=== PATIENT | female | born 1965 | race Caucasian/White ===

== ENCOUNTER 2016-07-02 10:47 | Emergency (ER) | payer BC ==
[2016-07-02 12:40] VITALS: BP 150/74
[2016-07-02] MEDS ORDERED: Fluorescein Sodium TOPICAL* 1 MG TEST ONE (12:42)
--- NOTE | 2016-07-02 13:00 | UC ---
Eye Complaint HPI - HPI Summary HPI Summary: 5 days ago developed L eye irritation while carrying wood, saw PCP at [place] 4 days ago and was rx gentamycin eye drops. Started using them in R eye at that point because she felt sx starting then. Since then sx have only worsened with copious tearing and dripping, very crusted in the am. Very itchy, denies photophobia or FB sensation. - History of Current Complaint Chief Complaint: UCEye Stated Complaint: EYE ISSUE Time Seen by Provider: 07/02/16 12:47 Hx Obtained From: Patient ?: No Onset/Duration: Gradual Onset, Lasting Days Timing: Constant Severity Initially: Mild Severity Currently: Moderate Location of Injury: Conjunctiva Aggravating Factor(s): Nothing Alleviating Factor(s): Nothing Associated Signs And Symptoms: Positive: Drainage (Clear). Negative: Photophobia, Vision Impairment Bilateral - Allergies/Home Medications Allergies/Adverse Reactions: Allergies Allergy/AdvReac Type Severity Reaction Status Date / Time No Known Allergies Allergy Verified 07/02/16 12:31 PMH/Surg Hx/FS Hx/Imm Hx Previously Healthy: Yes - Surgical History Surgical History: None - Family History Known Family History: Positive: Other - denies glaucoma or eye problems - Social History Occupation: Employed Full-time Alcohol Use: Occasionally Substance Use Type: None Smoking Status (MU): Light Every Day Tobacco Smoker Amount Used/How Often: 1/2 PPD Review of Systems Constitutional: Negative Skin: Negative Eyes: Drainage, Eye Redness ENT: Negative Respiratory: Negative Cardiovascular: Negative Gastrointestinal: Negative Genitourinary: Negative Motor: Negative Neurovascular: Negative Musculoskeletal: Negative Neurological: Negative Psychological: Negative All Other Systems Reviewed And Are Negative: Yes Physical Exam Triage Information Reviewed: Yes Appearance: Well-Appearing, No Pain Distress, Well-Nourished Vital Signs: Initial Vital Signs Temp 98.9 F 07/02/16 12:35 Pulse 76 07/02/16 12:35 Resp 18 07/02/16 12:35 BP 150/74 07/02/16 12:35 Pulse Ox 100 07/02/16 12:35 Vital Signs Reviewed: Yes Eye Exam: Other - fluorescein dye negative for uptake Eyes: Positive: Conjunctiva Inflamed ENT Exam: Normal ENT: Positive: Normal ENT inspection, Hearing grossly normal, Pharynx normal, TMs normal Dental Exam: Normal Neck exam: Normal Neck: Positive: Supple, Nontender, No Lymphadenopathy Respiratory Exam: Normal Respiratory: Positive: Chest non-tender, Lungs clear, Normal breath sounds, No respiratory distress Cardiovascular Exam: Normal Cardiovascular: Positive: RRR, No Murmur Musculoskeletal Exam: Normal Neurological Exam: Normal Psychological Exam: Normal Skin Exam: Normal Eye Complaint Course/Dx - Differential Dx/Diagnosis Provider Diagnoses: bilat conjunctivitis, viral versus allergic Discharge - Discharge Plan Condition: Stable Disposition: HOME Prescriptions: Erythromycin OPTH OINT* 1 applic BOTH EYES QID #1 ophth.oint Patient Education Materials: Conjunctivitis (ED) Referrals: Brock Mckeon MD [Medical Doctor] - 3 Days Additional Instructions: As we discussed, I think you likely have either a viral conjunctivitis or an allergic reaction to the drops you put in your eyes. STOP USING THE GENTAMYCIN DROPS. If you have a viral infection, it will probably take several days to resolve. If you do not have rapid improvement, you should see an Mdm Developer later this week for a recheck.
== END 2016-07-02 13:00 | disposition home or self-care (01) ==
LOC: UCEAST 10:47
DX: H10.9 Unspecified conjunctivitis (principal); F17.210 Nicotine dependence, cigarettes, uncomplicated
CPT/HCPCS: 99202; A9270-GY; G0463

== ENCOUNTER 2017-04-05 15:55 | Observation (INO) | payer BC ==
[2017-04-05 19:43] LABS: Hematocrit 39 % (35-47); Hemoglobin 13.7 g/dl (12.0-16.0); Mean Corpuscular HGB Conc 35 g/dl (31-36); Mean Corpuscular Hemoglobin 32 pg (27-31); Mean Corpuscular Volume 92 fL (80-97); Mean Platelet Volume 8 um3 (7.4-10.4); Red Blood Count 4.25 10^6/ul (4.0-5.4); Red Cell Distribution Width 12 % (10.5-15); White Blood Count 10.1 10^3/ul (3.5-10.8)
--- NOTE | 2017-04-05 19:46 | ED ---
Throat Pain/Nasal Congestion - HPI Summary HPI Summary: 51F w/ no PMH presents with swelling and pain under tongue for a week. Developed tooth pain in tooth 17 and saw an oral surgeon in [place] who removed the tooth on saturday. She states the swelling has increased since then. She was placed on amoxicillin which has been taking since Saturday. She followed up with primary today who sent her for CT. CT shows left sided sialothiasis with loculate fluid collection in left submandibular gland measuring 3.2cm. no chest pain or SOB, no nausea or vomiting. no erythema of area. no drainage from karlene duct. <Daisy Haynes - Last Filed: 04/06/17 02:36> <Steph Davidson - Last Filed: 04/07/17 16:38> - History of Current Complaint Chief Complaint: EDDentalPain Time Seen by Provider: 04/05/17 18:30 - Allergies/Home Medications Allergies/Adverse Reactions: Allergies Allergy/AdvReac Type Severity Reaction Status Date / Time Sulfa Antibiotics Allergy Unknown Verified 04/05/17 18:13 Reaction Details Home Medications: Home Medications Multiple Vitamin [Multivitamins] 1 cap PO DAILY 04/05/17 [History Confirmed 12/15] PMH/Surg Hx/FS Hx/Imm Hx Endocrine/Hematology History: Denies: Hx Diabetes Cardiovascular History: Denies: Hx Hypertension History: Denies: Hx Renal Disease - Surgical History Surgery Procedure, Year, and Place: D&C Infectious Disease History: No Infectious Disease History: Denies: Traveled Outside the [place] in Last 30 Days - Family History Known Family History: Positive: Other - denies glaucoma or eye problems - Social History Alcohol Use: Occasionally Substance Use Type: Reports: None, Prescribed Smoking Status (MU): Light Every Day Tobacco Smoker Amount Used/How Often: 1/2 PPD <Daisy Haynes - Last Filed: 04/06/17 02:36> Review of Systems Negative: Fever Positive: Other - swelling left side of face. Negative: Chest Pain Negative: Shortness Of Breath All Other Systems Reviewed And Are Negative: Yes <Dasiy Haynes - Last Filed: 04/06/17 02:36> Physical Exam Triage Information Reviewed: Yes Vital Signs On Initial Exam: Initial Vitals Temp Pulse Resp BP Pulse Ox 98.7 F 76 17 164/102 98 04/05/17 16:06 04/05/17 16:06 04/05/17 16:06 04/05/17 16:06 04/05/17 16:06 Vital Signs Reviewed: Yes Completion Of Physical Exam Limited Due To: Dementia Appearance: Positive: Well-Appearing Skin: Positive: Warm, Dry Eyes: Positive: Normal, EOMI, NELSON, Conjunctiva Clear ENT: Positive: Pharynx normal, TMs normal, Other - swelling to left side neck with no erythema, no drainage expressed from karlene duct.. Negative: Trismus, Muffled/hoarse voice Respiratory/Lung Sounds: Positive: Clear to Auscultation, Breath Sounds Present Cardiovascular: Positive: Normal, RRR - Kristin Coma Scale Coma Scale Total: 15 <Daisy Haynes - Last Filed: 04/06/17 02:36> Vital Signs On Initial Exam: Initial Vitals Temp Pulse Resp BP Pulse Ox 98.7 F 76 17 164/102 98 04/05/17 16:06 04/05/17 16:06 04/05/17 16:06 04/05/17 16:06 04/05/17 16:06 <Steph Davidson - Last Filed: 04/07/17 16:38> Diagnostics - Vital Signs Vital Signs Temp Pulse Resp BP Pulse Ox 04/05/17 16:06 98.7 F 76 17 164/102 98 - Laboratory Result Diagrams: 04/05/17 19:30 04/05/17 19:30 Lab Statement: Any lab studies that have been ordered have been reviewed, and results considered in the medical decision making process. <Daisy Haynes - Last Filed: 04/06/17 02:36> - Vital Signs Vital Signs Temp Pulse Resp BP Pulse Ox 04/05/17 21:30 74 126/69 96 04/05/17 21:08 16 04/05/17 21:04 72 98 04/05/17 21:03 130/72 04/05/17 16:06 98.7 F 76 17 164/102 98 - Laboratory Lab Results: Lab Results 04/05/17 04/05/17 04/05/17 Range/Units 19:30 19:30 19:30 WBC 10.1 (3.5-10.8) 10^3/ul RBC 4.25 (4.0-5.4) 10^6/ul Hgb 13.7 (12.0-16.0) g/dl Hct 39 (35-47) % MCV 92 (80-97) fL MCH 32 H (27-31) pg MCHC 35 (31-36) g/dl RDW 12 (10.5-15) % Plt Count 321 (150-450) 10^3/ul MPV 8 (7.4-10.4) um3 Neut % (Auto) 66.0 (38-83) % Lymph % (Auto) 23.4 L (25-47) % [place] % (Auto) 7.9 (1-9) % Eos % (Auto) 1.7 (0-6) % Baso % (Auto) 1.0 (0-2) % Absolute Neuts (auto) 6.7 (1.5-7.7) 10^3/ul Absolute Lymphs (auto) 2.4 (1.0-4.8) 10^3/ul Absolute Monos (auto) 0.8 (0-0.8) 10^3/ul Absolute Eos (auto) 0.2 (0-0.6) 10^3/ul Absolute Basos (auto) 0.1 (0-0.2) 10^3/ul Absolute Nucleated RBC 0 10^3/ul Nucleated RBC % 0 Sodium 136 (133-145) mmol/L Potassium 3.9 (3.5-5.0) mmol/L Chloride 103 (101-111) mmol/L Carbon Dioxide 25 (22-32) mmol/L Anion Gap 8 (2-11) mmol/L BUN 7 (6-24) mg/dL Creatinine 0.53 (0.51-0.95) mg/dL Est GFR ( Amer) 155.2 (>60) Est GFR (Non-Af Amer) 120.7 (>60) BUN/Creatinine Ratio 13.2 (8-20) Glucose 98 (70-100) mg/dL Lactic Acid 0.5 (0.5-2.0) mmol/L Calcium 9.4 (8.6-10.3) mg/dL Total Bilirubin 0.50 (0.2-1.0) mg/dL AST 14 (13-39) U/L ALT 12 (7-52) U/L Alkaline Phosphatase 73 (34-104) U/L C-React Prot High Sens 44.22 mg/L Total Protein 7.1 (6.4-8.9) g/dL Albumin 4.2 (3.2-5.2) g/dL Globulin 2.9 (2-4) g/dL Albumin/Globulin Ratio 1.4 (1-3) Result Diagrams: 04/07/17 06:25 04/07/17 06:25 Lab Statement: Any lab studies that have been ordered have been reviewed, and results considered in the medical decision making process. <Steph Davidson - Last Filed: 04/07/17 16:38> EENT Course/Dx - Course Course Of Treatment: 51F w/ no PMH presents with swelling and pain under tongue for a week. Developed tooth pain in tooth 17 and saw an oral surgeon in [place] who removed the tooth on saturday. She states the swelling has increased since then. She was placed on amoxicillin which has been taking since Saturday. She followed up with primary today who sent her for CT. CT shows left sided sialothiasis with loculate fluid collection in left submandibular gland measuring 3.2cm. no chest pain or SOB, no nausea or vomiting. no erythema of area. no drainage from karlene duct. no trismus, is managing secretions well. able to talk in full sentences. spoke with dr mcgee recommended IV PCN and clindamycin and continue meds PO. states needs see someone this weekend but cannot see him due to issues OR priviledges for the weekend and not being established patient. dr davidson spoke with dr colunga who will come and see in ED. dr colunga will attempt to drain in ED and recommends admission. dennise agrees to admission. - Differential Diagnoses Differential Diagnoses: Candelario's Angina, Other - sialolithasis of submandibular gland, abscess <Daisy Haynes - Last Filed: 04/06/17 02:36> <Steph Davidson - Last Filed: 04/07/17 16:38> - Diagnoses Provider Diagnoses: Sialolithiasis of submandibular gland, Submandibular abscess Discharge <Daisy Haynes - Last Filed: 04/06/17 02:36> <Steph Davidson - Last Filed: 04/07/17 16:38> - Discharge Plan Condition: Good Disposition: ADMITTED TO [facility] Images - Images Dental: 1 - removed <Daisy Haynes - Last Filed: 04/06/17 02:36> Attestation Statement User Type: Provider - I was available for consult. This patient was seen by the JER. The patient was not presented to, seen by, or examined by me. -Eryn <Steph Davidson - Last Filed: 04/07/17 16:38>
[2017-04-05 19:59] LABS: Albumin 4.2 g/dL (3.2-5.2); BUN/Creatinine Ratio 13.2 (8-20); Calcium 9.4 mg/dL (8.6-10.3); EGFR African American 155.2 (>60); EGFR Non-African American 120.7 (>60); Globulin 2.9 g/dL (2-4); Potassium 3.9 mmol/L (3.5-5.0); Total Bilirubin 0.5 mg/dL (0.2-1.0); Total Protein 7.1 g/dL (6.4-8.9)
[2017-04-05] MEDS ORDERED: Clindamycin 900 MG IVPREMIX(* 900 MG/50 ML SDV IV ONE (20:44)
[2017-04-05] MEDS ORDERED: NS 0.9% 1000 ML* 1,000 ML IV ONE (20:51)
[2017-04-05] MEDS ORDERED: Ondansetron INJ* 2 MG/ML VIAL IV ONE (20:59)
[2017-04-05] MEDS ORDERED: Morphine INJ* 2 MG/ML 1 ML CARPUJECT IV ONE (20:59)
[2017-04-05] MEDS ORDERED: Lidocaine 1%* 5 ML VIAL INJ ONE (22:06)
[2017-04-05] MEDS ORDERED: Lidocaine 1% MPF wEPI 200,000* 30 ML SDV INJ ONE (22:06)
[2017-04-05] MEDS ORDERED: Acetaminophen TAB* 325 MG PO PRN (22:51)
[2017-04-05] MEDS ORDERED: LORazepam INJ* 2 MG/ML 1 ML VIAL IV PRN (22:51)
[2017-04-05] MEDS ORDERED: HYDROmorphone INJ* 2 MG/ML CARPUJECT SYRINGE IV PRN (22:51)
[2017-04-05] MEDS ORDERED: Ondansetron INJ* 2 MG/ML VIAL IV PRN (22:53)
--- NOTE | 2017-04-05 23:16 | HP ---
H&P (Free Text) History and Physical: PCP: Saloni Urban MD Date/Time: 04/05/2017 2271 CC: L submandibular pain/swelling HPI: Mrs Khan is a 51YO healthy female reporting onset of L submandibular pain & swelling last weekend for which she saw a dentist in [place] on Saturday who diagnosed a failed root canal from 3 years earlier as culprit, referred her to an oral surgeon for same day extraction, and prescribed amoxicillin. She had the tooth removed, but felt she was worsening on follow up when she ate a Cheeze-It on the right which caused severe L submandibular pain. She was given reassurance and a follow up for this Saturday, no change in ABX. Saturday AM she was seen by [facility] where a CT of the neck was ordered showind an abscessed L submandibular gland 2nd sialolithiasis and she was referred to [facility] ED. Sanjiv Lizama MD otorhinolaryngology evaluated in ED and performed a stone extraction/I&D. She will be observed overnight for pain control and IV ABX. PMedHx denies Ambulatory Orders Nursing to reconcile. Erythromycin OPTH OINT* [Erythromycin 0.5% OPTH OINT*] 1 applic BOTH EYES QID # 1 ophth.oint 07/02/16 Allergies Sulfa Antibiotics Allergy (Verified 04/05/17 18:13) Unknown Reaction Details PSurgHx denies SocHx: 1/2PPD cigarettes, 1-2 alcoholic drinks weekly, denies recreational drugs ; lives with her ; works in the [employer] at [employer]; full code status FamHx: denies early onset CAD/CVA ROS: as above, otherwise reviewed and all were negative vitals: Vital Signs Temp 37.1 C 04/05/17 16:06 Pulse 74 04/05/17 21:30 Resp 16 04/05/17 21:08 BP 126/69 04/05/17 21:30 Pulse Ox 96 04/05/17 21:30 Intake & Output 04/04/17 04/05/17 04/05/17 23:59 11:59 23:59 Weight 63.957 kg Constitutional: NAD, normally developed, well-nourished white female HEENM: atraumatic; sclera/conjunctiva: anicteric/clear; hearing: clinically intact; oropharynx: L subglossal swelling and tenderness Neck: soft tissue: L submandibular/jaw swelling and tenderness; thyroid: normal Pulmonary: clear to auscultation bilaterally, good aeration, no accessory muscle use CV: RR/RR, normal S1S2, no carotid bruit, no jugular venous distention, 2+ B DP/ PT, no edema Abdominal: soft, non-distended, non-tender, no rebound/guarding/rigidity, normoactive bowel sounds, no hepatosplenomegaly or masses, no costovertebral angle tenderness Musculoskeletal: general: grossly intact; gait: stable Integumental: normal appearance and texture of exposed skin Psychiatric orientation: AA&O to PPS affect: calm mood: frustrated, cooperative eye contact: good content: reliable responses: timely insight: good Testing: Lab Results 04/05/17 04/05/17 04/05/17 Range/Units 19:30 19:30 19:30 WBC 10.1 (3.5-10.8) 10^3/ul RBC 4.25 (4.0-5.4) 10^6/ul Hgb 13.7 (12.0-16.0) g/dl Hct 39 (35-47) % MCV 92 (80-97) fL MCH 32 H (27-31) pg MCHC 35 (31-36) g/dl RDW 12 (10.5-15) % Plt Count 321 (150-450) 10^3/ul MPV 8 (7.4-10.4) um3 Neut % (Auto) 66.0 (38-83) % Lymph % (Auto) 23.4 L (25-47) % [place] % (Auto) 7.9 (1-9) % Eos % (Auto) 1.7 (0-6) % Baso % (Auto) 1.0 (0-2) % Absolute Neuts (auto) 6.7 (1.5-7.7) 10^3/ul Absolute Lymphs (auto) 2.4 (1.0-4.8) 10^3/ul Absolute Monos (auto) 0.8 (0-0.8) 10^3/ul Absolute Eos (auto) 0.2 (0-0.6) 10^3/ul Absolute Basos (auto) 0.1 (0-0.2) 10^3/ul Absolute Nucleated RBC 0 10^3/ul Nucleated RBC % 0 Sodium 136 (133-145) mmol/L Potassium 3.9 (3.5-5.0) mmol/L Chloride 103 (101-111) mmol/L Carbon Dioxide 25 (22-32) mmol/L Anion Gap 8 (2-11) mmol/L BUN 7 (6-24) mg/dL Creatinine 0.53 (0.51-0.95) mg/dL Est GFR ( Amer) 155.2 (>60) Est GFR (Non-Af Amer) 120.7 (>60) BUN/Creatinine Ratio 13.2 (8-20) Glucose 98 (70-100) mg/dL Lactic Acid 0.5 (0.5-2.0) mmol/L Calcium 9.4 (8.6-10.3) mg/dL Total Bilirubin 0.50 (0.2-1.0) mg/dL AST 14 (13-39) U/L ALT 12 (7-52) U/L Alkaline Phosphatase 73 (34-104) U/L C-React Prot High Sens 44.22 mg/L Total Protein 7.1 (6.4-8.9) g/dL Albumin 4.2 (3.2-5.2) g/dL Globulin 2.9 (2-4) g/dL Albumin/Globulin Ratio 1.4 (1-3) Maxillofacial CT W, personally reviewed: IMPRESSION: LEFT-SIDED SIALOLITHIASIS WITH A LOCULATED FLUID COLLECTION IN THE LEFT SUBMANDIBULAR SPACE, MEASURING UP TO 3.2 CM. THE DIFFERENTIAL INCLUDES A RANULA, THOUGH THERE IS PERIPHERAL ENHANCEMENT AND ASSOCIATED INFLAMMATORY CHANGE WITH EDEMA OF THE LEFT SUBMANDIBULAR GLAND AND MUCOSA OF THE LEFT OROPHARYNX, AND ABSCESS SHOULD BE CONSIDERED WITHIN THE DIFFERENTIAL WELL Impression: 51F presenting with L submandibular obstructing sialolithiasis and abscess DIAGNOSIS & PLAN Primary L submandibular obstructing sialolithiasis and abscess : Sanjiv Lizama MD ORL evaluated in ED & will follow : pain control : IV clindamycin : chlorhexidine swish/spit : clears until 0800 then NPO : supportive care Admission Rational: observation for initiation of IV ABX for abscess post-I&D & pain control DVTp: SCDs while in bed Code Status: full HCP:
[2017-04-06] MEDS: Ketorolac INJ* 15 MG/ML 1 ML VIAL IV PRN ×4 (00:15→19:12)
[2017-04-06] MEDS: NS 0.9% 1000 ML* 1,000 ML IV SCH ×4 (00:34→23:02)
[2017-04-06] MEDS: Chlorhexidine MOUTHWASH 0.12%* 15 ML UDC SWISH SPIT SCH ×5 (01:10→23:06)
[2017-04-06] MEDS: Clindamycin 600 MG IVPREMIX(* 600 MG/50 ML SDV IV SCH ×3 (05:38→22:00)
[2017-04-06] MEDS: Omeprazole CAP* 20 MG PO SCH (05:41)
[2017-04-06 06:58] LABS: Hematocrit 36 % (35-47); Hemoglobin 12.6 g/dl (12.0-16.0); Mean Corpuscular HGB Conc 35 g/dl (31-36); Mean Corpuscular Hemoglobin 33 pg (27-31); Mean Corpuscular Volume 93 fL (80-97); Mean Platelet Volume 8 um3 (7.4-10.4); Red Blood Count 3.87 10^6/ul (4.0-5.4); Red Cell Distribution Width 12 % (10.5-15); White Blood Count 10.1 10^3/ul (3.5-10.8)
[2017-04-06] MEDS: Docusate CAP* 100 MG PO SCH ×2 (08:15→22:06)
[2017-04-06] MEDS: Lactobacillus Acidophilu (GG)* 1 CAP CAP PO SCH (12:29)
--- NOTE | 2017-04-06 12:59 | PN ---
Subjective Date of Service: 04/06/17 Interval History: Patient states she feels much better this morning after the antibiotics overnight. Patient states she feels like the swelling has gone down considerably and that her pain is well controlled at this time. Patient denies any other acute complaints including CP, SOB, N/V, constipation or diarrhea. Patient denies any other associated symptoms with the stone including dry eyes or mouth, joint aches or rash. Family History: Unchanged from Admission Social History: Unchanged from Admission Past Medical History: Unchanged from Admission Objective Active Medications: Acetaminophen (Tylenol Tab*) 650 mg PO Q6H PRN PRN Reason: FEVER/PAIN Chlorhexidine Gluconate (Peridex Mouth Wash 0.12%*) 15 ml SWISH SPIT Q6H [facility] Last Admin: 04/06/17 12:29 Dose: 15 ml Docusate Sodium (Colace Cap*) 200 mg PO BID [facility] Last Admin: 04/06/17 08:15 Dose: Not Given Hydromorphone HCl (Dilaudid Inj*) 0.5 mg IV Q2H PRN PRN Reason: PAIN Clindamycin HCl/Dextrose (Cleocin 600 Mg Ivpremix(*) Sdv) 600 mg in 50 mls @ 100 mls/hr IV Q8H [facility] Last Admin: 04/06/17 12:29 Dose: 100 mls/hr Sodium Chloride (Ns 0.9% 1000 Ml*) 1,000 mls @ 125 mls/hr IV PER RATE [facility] Last Admin: 04/06/17 05:41 Dose: 125 mls/hr Ketorolac Tromethamine (Toradol Inj*) 15 mg IV Q6H PRN PRN Reason: PAIN Last Admin: 04/06/17 12:29 Dose: 15 mg Lactobacillus Rhamnosus (Culturelle*) 1 cap PO DAILY [facility] Last Admin: 04/06/17 12:29 Dose: 1 cap Lorazepam (Ativan Inj*) 0.5 mg IV BEDTIME PRN PRN Reason: SLEEP Omeprazole (Prilosec Cap*) 20 mg PO DAILY@0600 [facility] Last Admin: 04/06/17 05:41 Dose: Not Given Ondansetron HCl (Zofran Inj*) 4 mg IV Q6H PRN PRN Reason: NAUSEA Vital Signs 04/06/17 04/06/17 04/06/17 00:31 01:26 03:36 Temperature 98.4 F 98.2 F Pulse Rate 68 71 Respiratory 16 16 18 Rate Blood Pressure 130/62 110/61 (mmHg) O2 Sat by Pulse 98 98 Oximetry 04/06/17 04/06/17 07:39 08:00 Temperature Pulse Rate 57 Respiratory 16 16 Rate Blood Pressure 111/58 (mmHg) O2 Sat by Pulse 97 Oximetry Oxygen Devices in Use Now: None Appearance: Patient is a 51yo female who appears stated age, with visible facial swelling who is sitting on the hospital bed in NAD. Eyes: No Scleral Icterus, PERRLA Ears/Nose/Mouth/Throat: Clear Oropharnyx, Mucous Membranes Moist, - - Patient has a missing molar on the left side with stitches without signs of infection. The left side of the patient's mouth is inflamed. The left sided karlene's duct is also inflamed without discharge. Neck: Trachea Midline, - - Supple, tenderness in the left submandibular area with palpable mass. Respiratory: Symmetrical Chest Expansion and Respiratory Effort, Clear to Auscultation Cardiovascular: NL Sounds; No Murmurs; No JVD, RRR, No Edema Abdominal: NL Sounds; No Tenderness; No Distention, No Hepatosplenomegaly Extremities: No Edema, No Clubbing, Cyanosis Skin: No Rash or Ulcers, No Nodules or Sclerosis Neurological: Alert and Oriented x 3 Result Diagrams: 04/06/17 06:26 04/05/17 19:30 Additional Lab and Data: 04/05/17 04/05/17 04/05/17 19:30 19:30 19:30 WBC 10.1 RBC 4.25 Hgb 13.7 Hct 39 MCV 92 MCH 32 H MCHC 35 RDW 12 Plt Count 321 MPV 8 Neut % (Auto) 66.0 Lymph % (Auto) 23.4 L [place] % (Auto) 7.9 Eos % (Auto) 1.7 Baso % (Auto) 1.0 Absolute Neuts (auto) 6.7 Absolute Lymphs (auto) 2.4 Absolute Monos (auto) 0.8 Absolute Eos (auto) 0.2 Absolute Basos (auto) 0.1 Absolute Nucleated RBC 0 Nucleated RBC % 0 Sodium 136 Potassium 3.9 Chloride 103 Carbon Dioxide 25 Anion Gap 8 BUN 7 Creatinine 0.53 Est GFR ( Amer) 155.2 Est GFR (Non-Af Amer) 120.7 BUN/Creatinine Ratio 13.2 Glucose 98 Lactic Acid 0.5 Calcium 9.4 Total Bilirubin 0.50 AST 14 ALT 12 Alkaline Phosphatase 73 C-React Prot High Sens 44.22 Total Protein 7.1 Albumin 4.2 Globulin 2.9 Albumin/Globulin Ratio 1.4 04/06/17 06:26 WBC 10.1 RBC 3.87 L Hgb 12.6 Hct 36 MCV 93 MCH 33 H MCHC 35 RDW 12 Plt Count 301 MPV 8 Neut % (Auto) Lymph % (Auto) [place] % (Auto) Eos % (Auto) Baso % (Auto) Absolute Neuts (auto) Absolute Lymphs (auto) Absolute Monos (auto) Absolute Eos (auto) Absolute Basos (auto) Absolute Nucleated RBC Nucleated RBC % Sodium Potassium Chloride Carbon Dioxide Anion Gap BUN Creatinine Est GFR ( Amer) Est GFR (Non-Af Amer) BUN/Creatinine Ratio Glucose Lactic Acid Calcium Total Bilirubin AST ALT Alkaline Phosphatase C-React Prot High Sens Total Protein Albumin Globulin Albumin/Globulin Ratio Assess/Plan/Problems-Billing Assessment: Patient is a 51yo female with no PMH who presents with sialoadenitis with sialolithiasis. Patient's submandibular gland was incised and drained in the ED yesterday by ENT and she feels significantly better. - Patient Problems (1) Acute sialoadenitis Current Visit: Yes Status: Acute Code(s): K11.21 - ACUTE SIALOADENITIS SNOMED Code(s): 112889811 Comment: Secondary to sialolithiasis. Appreciate ENT consult and treatment. Continue IV clindamycin for another day the transition to Oral. Started probiotic to avoid antibiotic associated diarrhea. Status and Disposition: Patient is admitted OBV and will be discharged tomorrow if able.
[2017-04-07] MEDS: Ketorolac INJ* 15 MG/ML 1 ML VIAL IV PRN (04:11)
[2017-04-07] MEDS: Clindamycin 600 MG IVPREMIX(* 600 MG/50 ML SDV IV SCH (05:08)
[2017-04-07] MEDS: Chlorhexidine MOUTHWASH 0.12%* 15 ML UDC SWISH SPIT SCH (05:39)
[2017-04-07] MEDS: Omeprazole CAP* 20 MG PO SCH (05:39)
[2017-04-07 06:38] LABS: Hematocrit 34 % (35-47); Mean Corpuscular HGB Conc 35 g/dl (31-36); Mean Corpuscular Hemoglobin 32 pg (27-31); Mean Corpuscular Volume 92 fL (80-97); Mean Platelet Volume 8 um3 (7.4-10.4); Red Blood Count 3.74 10^6/ul (4.0-5.4); Red Cell Distribution Width 12 % (10.5-15)
[2017-04-07 06:57] LABS: BUN/Creatinine Ratio 14.9 (8-20); C Reactive Protein 20.15 mg/L (< 5.00); Calcium 8.4 mg/dL (8.6-10.3); EGFR African American 178.3 (>60); EGFR Non-African American 138.6 (>60); Potassium 3.7 mmol/L (3.5-5.0)
[2017-04-07] MEDS: Docusate CAP* 100 MG PO SCH ×2 (08:49→08:50)
[2017-04-07] MEDS: Lactobacillus Acidophilu (GG)* 1 CAP CAP PO SCH (08:49)
[2017-04-07 11:08] VITALS: BP 113/87
--- NOTE | 2017-04-08 06:05 | DS ---
AMENDED REPORT NOW INCLUDES COSIGNER DESIGNATION - ESIGNED BEFORE ADJUSTMENTS CC: Dr. Urban * DISCHARGE SUMMARY: DATE OF ADMISSION: 04/05/17 DATE OF DISCHARGE: 04/07/17 PRIMARY CARE PROVIDER: Dr. Urban. ATTENDING PHYSICIAN WHILE IN THE HOSPITAL: Dr. Rashmi Bone * (DICTATED BY jaylen PRIETO) PRIMARY DISCHARGE DIAGNOSES: 1. Sialoadenitis. 2. Sialolithiasis. SECONDARY DISCHARGE DIAGNOSIS: None. STUDIES DONE WHILE IN THE HOSPITAL: None. CONSULTING PROVIDER: Sean Lizama MD, ENT MEDICATIONS ON DISCHARGE: 1. Multivitamin. 2. Chlorhexidine mouthwash 15 mL swish and spit q.6 hours. 3. Clindamycin 300 mg p.o. q.6 hours x40. 4. Probiotic. New medications started while in the hospital: 1. Chlorhexidine mouthwash 15 mL. 2. Clindamycin. 3. Probiotic. Discontinued medications: None. HOSPITAL COURSE: This is a brief summary of the patient's hospital course. For more details, please see the history and physical by Dr. Juan C Hanna on 04/05/17. Briefly, the patient is a 51-year-old female with no significant past medical history, who presents with several weeks of worsening jaw pain. The patient went to see a dentist, had an x-ray and it was attributed to a root canal. The patient had I believe tooth removed, but the pain continued to get worse. The patient had fevers, chills, and noted that the pain was worse even when chewing with the right side of her mouth. The patient was seen at [facility] where CT of the neck was ordered, which showed sialolithiasis and she was referred to [place] [facility] The patient was seen in the emergency department by Dr. Sean Lizama, and had incision and drainage of her submandibular gland performed with removal of pus and breaking of the loculations. Dr. Lizama was unable to remove the stone at this time due to patient's pain. The patient was admitted for IV antibiotics and supportive care. The patient improved dramatically overnight reporting significantly decreased pain and no systemic symptoms. ENT advised that the patient should stay for 24 hours plus off IV clindamycin. The patient was started on probiotic to help prevent Clostridium difficile infection. The patient also had chlorhexidine mouthwashes while in the hospital. The patient improved again overnight and from 04/06/17 to , and was deemed ready for discharge on 04/07/17. The patient was prescribed clindamycin q.i.d. 300 mg for 10 days and was advised to follow up with Dr. Lizama as outpatient to have elective removal of the sialoliths. The patient was also advised to follow up with her primary care doctor, Dr. Urban in a week. The patient admits to having one episode of diarrhea on 04/07/17 before she left, without any blood. PHYSICAL EXAMINATION ON DAY OF DISCHARGE: General: The patient is a 51-year- old female with noticeable neck swelling, sitting in the hospital bed in no acute distress. Vital Signs: At discharge, temperature 98.4, pulse rate 62, respiratory rate 16, oxygen saturation 99% on room air, blood pressure 123/87. HEENT: Head normocephalic, atraumatic. Sclerae anicteric. No conjunctival injection. Nasal mucosa moist. Oral mucosa moist. There is a missing molar with sutures in the gum with no signs of inflammation. Woodward's duct is inflamed on the left side. There was redness generally on the left side of the mouth. Neck: Supple. Tenderness to palpation over the left side of her neck. Palpable mass in submandibular area. No discrete lymphadenopathy. No carotid bruits auscultated. Cardiac: Regular rate and rhythm. No clicks, murmurs, gallops, or rubs. Pulses 2+ in the bilateral posterior tibialis, dorsalis pedis, and radial areas. Respiratory: Clear to auscultation bilaterally. No wheezes, rales or rhonchi. Good air exchange bilaterally. Abdomen: Normoactive bowel sounds. Soft, nontender, nondistended. No hepatosplenomegaly. No abdominal bruits auscultated. Genitourinary: No suprapubic tenderness or CVA tenderness. Skin: Clean, dry, and intact. Neuro : Cranial nerves II through XII grossly intact. Normal gait. Psychiatric: Pleasant, cooperative. HOSPITAL DISCHARGE PLAN: The patient will be discharged home with oral antibiotics and chlorhexidine mouth rinses to help clear up her sialoadenitis. The patient will follow up with Dr. Lizama for elective removal of her sialolith. The patient will be started on probiotic for prevention of C. difficile colitis. The patient and her had many questions about this discharge, which were answered to their satisfaction. The patient was set up with an appointment with Dr. Lizama on 04/10/17. ACTIVITY: As tolerated. DIET: Soft diet for comfort. This is a brief summary of the hospital course, for more details please consult the medical record. TIME SPENT: Approximately 60 minutes was spent on this discharge, 30 of which spent [id number] with the patient obtaining the history and physical and discussing the treatment plan. JAYLEN PRIETO [id number]/[facility] #: [id number] [place]
== END 2017-04-07 10:45 | disposition home or self-care (01) ==
LOC: ED 15:55 → SSU 22:48
PROVIDERS: ADMIT Hospitalist; ATTEND Internal Medicine
PROC: 0W950ZZ Drainage of Lower Jaw, Open Approach (ICD-10-PCS; principal; 2017-04-05)
DX: K11.20 Sialoadenitis, unspecified (principal); K11.5 Sialolithiasis; K11.3 Abscess of salivary gland; Z79.899 Other long term (current) drug therapy; Z88.2 Allergy status to sulfonamides; F17.210 Nicotine dependence, cigarettes, uncomplicated
CPT/HCPCS: 36415; 80048; 80053; 83605; 85025; 85027; 86140; 86141; 96365; 96375; 96376; 99283; A9270-GY; G0378; J1885; J2001; J2270; J2405

== ENCOUNTER → 2017-05-31 10:32 | Day surgery (SDC) | payer BC ==
[~2017-05-31 10:32] MED LIST: Acetaminophen TAB* 325 MG ONE; Acetaminophen TAB* 325 MG PO ONE; Buffered Lidocaine 0.9% SYRIN* 5 ML/SYR SYRINGE INTRADERM ONE; Buffered Lidocaine 0.9% SYRIN* 5 ML/SYR SYRINGE ONE; Dexamethasone IV* 4 MG/ML 1 ML (4 MG) IV SLOW PU ONE; Dexamethasone IV* 4 MG/ML 1 ML (4 MG) ONE; DiMENhydriNATE IV* 50 MG/ML VIAL IV PUSH PRN; Famotidine IV* 10 MG/ML 2 ML (20 mg) IV ONE; Famotidine IV* 10 MG/ML 2 ML (20 mg) ONE; HYDROcodone/ACETAMIN 5-325 MG* 1 TAB ONE; HYDROcodone/ACETAMIN 5-325 MG* 1 TAB PO PRN; HYDROmorphone INJ* 1 MG/ML CARPUJECT SYRINGE IV PRN; Levalbuterol 0.63MG/3ML NEB* UNIT OF USE INH ONE; Levalbuterol 1.25MG/0.5ML NEB ONE; Lidocaine 1% MPF wEPI 200,000* 30 ML SDV ONE; Lidocaine 2% PF * 5 ML VIAL ONE; Midazolam* 1 MG/ML 2 ML VIAL (2 MG) ONE; Ondansetron INJ* 2 MG/ML VIAL IV PRN; Ondansetron INJ* 2 MG/ML VIAL ONE; Phenylephrine IV* 40 MCG/ML 10 ML SYRINGE ONE; Propofol* 10 MG/ML 20 ML BTL IV PUSH ONE; Rocuronium* 10 MG/ML VIAL ONE; Succinylcholine* 20 MG/ML 10 ML VIAL ONE; fentaNYL* 50 MCG/ML 2 ML VIAL (100 MCG VIAL) ONE; oxyCODONE TAB* 5 MG TAB PO PRN
[2017-05-31] MEDS: fentaNYL* 50 MCG/ML 2 ML VIAL (100 MCG VIAL) IV PRN ×2 (14:25→14:46)
[2017-05-31 14:48] VITALS: BP 132/74
--- NOTE | 2017-06-01 07:16 | OP ---
DATE OF OPERATION: 05/31/17 [facility] DATE OF : 61 ATTENDING SURGEON: Sean Lizama MD [employer] ASSEMBLER AND GLUER: Jamie Benites MD ANESTHESIOLOGIST: Steph Bartlett MD ANESTHESIA: General. PRE-OP DIAGNOSIS: Sialolithiasis and sialadenitis of the left submandibular gland. POST-OP DIAGNOSIS: Sialolithiasis and sialadenitis of the left submandibular gland. OPERATIVE PROCEDURE: Transoral excision of salivary stones and stenting of Pettis's duct on the left. ESTIMATED BLOOD LOSS: Less than 15 cc. SPECIMENS: Multiple small stones sent to pathology. INDICATION: This is a 51-year-old woman who, in March, was admitted to the hospital with infection of the left submandibular gland and floor of mouth. She underwent transoral drainage in the emergency department and improved on intravenous antibiotics, but the CT scan did show the presence of stones and these were unable to be removed in the office. The patient did well for a while , but then began to have swelling and repeat infection of the left submandibular gland. The decision was made at that point to bring her to the operating room for transoral removal of salivary stones possible, left submandibular gland excision. DESCRIPTION OF PROCEDURE: On 05/31/17, the patient was brought to the operating room, general anesthesia was induced and oral endotracheal tube was placed. The patient was draped and a time- out was performed. A side biting mouth gag was used to keep the mouth open. The cheek and tongue were retracted. The floor of mouth was firm and an inflamed and purulent material was seen coming out of what appeared to be a small fistula just proximal to the natural opening of Pettis's duct. This fistula was cannulated with a lacrimal probe. A 15 blade and iris scissors were used to open the fistula more widely, which resulted in release of pus and several small stones. The lacrimal probe led to what appeared to be a very dilated pus filled proximal Margaret's duct. This was explored, several stones were found and removed. The cavity was then copiously irrigated with saline. A small 8-Australian feeding tube was then selected and trimmed and placed into the proximal duct to function as a stent to allow for further drainage, not only of infected material, but also to allow for controlled fistulization of the gland. This was sutured with 5-0 nylon and the patient was then returned to the care of anesthesiologist, she was extubated and delivered to the PACU in stable condition. [id number]/[facility] #: [id number] [place]
== END | disposition home or self-care (01) ==
LOC: OR 10:32
PROVIDERS: ATTEND Otolaryngology
DX: K11.22 Acute recurrent sialoadenitis (principal); K11.5 Sialolithiasis; F17.210 Nicotine dependence, cigarettes, uncomplicated
CPT/HCPCS: 88300; A9270-GY; J0330; J1100; J2001; J2250; J2405; J2704; J3010